=== PATIENT | male | born 1955 | race Caucasian/White ===

== ENCOUNTER 2018-10-04 00:54 | Inpatient (IN) ==
[2018-10-04] MEDS ORDERED: Naloxone 0.4 MG/ML INJ IVP PRN ×2 (01:51→19:09)
--- NOTE | 2018-10-04 05:37 | Internal Med History&Physical ---
Date of Encounter: 10/04/18 Time of Encounter: 05:05 Internal Medicine - H&P: HPI Chief complaint: Left finger infection Admitted From: Hospital to Hospital Transfer Plans for Post Hospital Care: Home History of present illness: Mr. Castrejon is a 63 year old male Patient presented to the [place] emergency room with injury to his left index finger. 5 days ago patient was out mowing his lawn, when he mowed underneath a tree. He reached out to grab a branch folded over his head and his finger became caught on the branch. He ended up with a small wound on the lateral palmar aspect of his finger. Over the next couple of days he has noted some discharge, swelling and pain that has increased since the initial injury. He has had associated nausea as well but no vomiting. He has felt feverish but he is unsure of an actual measured temperature. He also states that he has poison oak on his upper extremities as well with healing blisters. At the [place] emergency room patient's vital signs were within normal limits, patient was mildly tachycardic with a pulse of 108 CBC: Notable for White count 18.9, hemoglobin 11.9, platelets 293 BMP: Notable for Sodium 128, potassium 3.6, glucose 117. Lactic acid: 0.6 Urinalysis negative for infection Left hand x-ray showed large amount of soft tissue swelling surrounding the left second digit but no acute bony abnormality. In the emergency room a small incision was made and copious amounts of pus was expressed. Wound, blood and urine cultures were obtained. Patient was started on IV vancomycin and transferred to [facility] for further m anagement. He received 500 mL bolus of IV fluids and started on 125 mL per hour maintenance fluid. Upon my evaluation, patient is resting comfortably in the hospital bed in no acute distress. He denies chest pain, abdominal pain, nausea, vomiting, diarrhea, constipation he denies previous injuries, and does not take medications. He is a pack per day smoker, drinks 1-2 beers per day. He also o ccasionally smokes marijuana. He denies significant family medical history including diabetes, heart disease and cancers. He is a full code. Past Med Surg Social Fam HX - Past Medical History Medical history: no medical history Psychiatric history: no psych history - Past Surgical History Additional surgical history: left hip surgery, left leg surgery - Social History Smoking Status: Current every day smoker Packs per day: 1 Smokeless Tobacco Status: No Alcohol use: heavy Drug use: opiates, marijuana - Family History Father Living Status: Age at : 54 Cause of : Cancer Hx Family Cancer: Yes (Colon) Internal Medicine - H&P: Meds No Known Home Drugs 10/03/18 [History] Allergy/AdvReac Type Severity Reaction Status Date / Time No Known Allergies Allergy Verified 06/30/16 13:14 All Systems PM: A 10-system review of systems was performed and is negative for pertinent findings except as documented above in the HPI. - Constitutional Vitals: Temp Pulse Resp BP Pulse Ox 98.8 F 80 15 135/72 90 10/04/18 03:54 10/04/18 03:54 10/04/18 03:54 10/04/18 03:54 10/04/18 03:54 General appearance: Present: cooperative, A&O X 3, pleasant, no acute distress, answers questions appropriately Exam: - - Head Head exam: Present: normal inspection - Eye Eye exam: Present: EOMI, normal appearance - Respiratory Respiratory exam: Present: CTAB. Absent: rales, respiratory distress, rhonchi, wheezes - Cardiovascular Cardiovascular exam: Present: RRR. Absent: diastolic murmur, systolic murmur - GI/Abdominal GI/Abdominal exam: Present: normal bowel sounds, soft. Absent: tenderness - Extremities Exam Extremities exam: Present: warm, radial pulses palpable and symmetrical. Absent: calf tenderness, pedal edema, tenderness Additional comments: Left index finger in bandage, swelling and redness of hand noted to wrist. Upper extremities have multiple wounds in various stages of healing, no erythema . - Neurological Exam Neurological exam: Present: no focal deficits, strengths equal and symetr throughout. Absent: motor sensory deficit, facial droop, speech deficit - Skin Skin exam: Present: abrasion, dry, erythema, warm - Assessment and Plan (1) Finger infection Current Visit: No Status: Acute Assessment and plan: Likely cellulitis of left index finger. Purulent discharge coming from the wound. Redness and swelling of the left hand up to the wrist. Emergency department to [place] contacted orthopedic surgery, will see the patient in the morning. Patient was started on IV antibiotics and blood cultures and wound cultures were drawn. Follow-up culture results Follow-up orthopedic surgery recommendations (2) Leukocytosis Current Visit: Yes Status: Acute Assessment and plan: Likely secondary to left index finger infection. Started on antibiotics in the ER. Follow up culture results continue antibiotics Qualifiers: Leukocytosis type: bandemia Qualified Code(s): D72.825 - Bandemia (3) Current nicotine use Current Visit: Yes Status: Acute Assessment and plan: Nicotine patch (4) Alcohol abuse Current Visit: Yes Status: Acute Assessment and plan: Patient denies previously going through alcohol withdrawal, no signs of withdrawal currently. Continue to monitor (5) DVT prophylaxis Current Visit: Yes Status: Acute - Time Spent With Patient Total time spent is greater than 50% in coordination of care (as documented) at patient's floor/unit and/or counseling patient: Greater than 35 minutes
[2018-10-04 06:11] LABS: Hematocrit 35.8 % (37.5-50.1); Hemoglobin 12.2 g/dL (12.9-16.9); Mean Corpuscular HGB Conc 34.1 g/dL (31.6-35.5); Mean Corpuscular Volume 91.1 fL (83.0-100.0); Mean Platelet Volume 9.8 fL (9.4-12.4); Platelet Count 315 K/mcL (140-400); Red Blood Count 3.93 M/mcL (4.19-5.50); Red Cell Distribution Width 13.6 % (11.5-14.5); White Blood Count 15.1 K/mcL (4.3-11.1)
[2018-10-04 06:18] LABS: INR 1.4; Prothrombin Time 16.1 Seconds (9.4-12.1)
[2018-10-04 06:21] LABS: Activated Partial Thrombo Time 32.9 Seconds (26.0-36.0)
[2018-10-04 06:30] LABS: BUN/Creatinine Ratio 18 (6-26); Blood Urea Nitrogen 7 mg/dL (8-23); Calcium 8.8 mg/dL (8.6-10.3); Carbon Dioxide 28 mEq/L (23-29); Chloride 98 mEq/L (98-107); Glucose 100 mg/dL (70-105); Osmolality,Calculated 276 (280-300); Potassium 3.5 mEq/L (3.5-5.1); Sodium 134 mEq/L (136-145); eGFR For African Americans > 60 (> 60); eGFR For Non-African Americans > 60 (> 60)
[2018-10-04] MEDS ORDERED: Nicotine 21 MG PATCH.TD24 TD SCH (09:00)
--- NOTE | 2018-10-04 09:37 | Event Note ---
Date of Encounter: 10/04/18 Time of Encounter: 15:40 Patient was seen and examined by hospitalist services earlier this morning- Orthopedics has been consulted for I/D of left second digit- No past cardiac history or hx of CVA - his cardiac risk index is zero- he is a smoker -EKG NSR- electrolytes stable - CXR ordered- Hemodynamically stable ready for surgical I/D
--- NOTE | 2018-10-04 15:17 | Anesthesia Evaluation PreOp ---
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: Denies Any Significant HX Other Medical History: Denies Any Significant HX Anesthesia History: No Prior Anesthetic Complications, Past Anesthesia (L-Hip surgery, L-leg surgery) Alcohol Use: heavy (admts 1-2 beer/day) Drug use: opiates, marijuana ("occasional") Medications and Allergies No Known Home Drugs 10/03/18 [History] Allergy/AdvReac Type Severity Reaction Status Date / Time No Known Allergies Allergy Verified 06/30/16 13:14 - Meds/Allergy Pre-op Review Medications Reviewed: Yes Allergies Reviewed: Yes Beta Blockers on Current Med List: No Anesthesia Results - Labs 10/04/18 05:47 10/04/18 05:47 Laboratory Tests 10/04/18 10/04/18 05:47 05:47 PT 16.1 H INR 1.4 APTT 32.9 Potassium 3.5 Chloride 98 Carbon Dioxide 28 BUN 7 L Est GFR (Non-Af Amer) > 60 - Imaging EKG: pending Anesthesia Exam Vital Signs Temp Pulse Resp BP Pulse Ox 10/04/18 12:23 98.5 F 86 20 134/83 95 10/04/18 07:56 99.0 F 86 20 135/83 95 10/04/18 03:54 98.8 F 80 15 135/72 90 10/04/18 01:14 98.1 F 88 17 155/73 97 Intake and Output 10/03/18 10/04/18 10/04/18 23:59 07:59 15:59 Other: # Voids 1 Weight 54.8 kg Patient Weight 10/04/18 23:59 Weight 54.8 kg - HEENT Pupil (Motor): Pupils equal, EOMI Mallampati: II Teeth: Edentulous (except for single lower front tooth), Poor dentition Oral Opening: Greater than 3 - TOLL MECHANIC LOC: Oriented TOLL MECHANIC Motor: Normal RUE, Normal LUE, Normal RLE, Normal LLE, Normal Face TOLL MECHANIC Sensory: Normal: RUE, LUE, RLE, LLE, Face - Cardiac Rhythm: Regular Murmur: None - Pulmonary Breath Sounds: bilateral Clear Respiratory Effort: Symmetrical Anesthesia Assess/Plan ASA Score: 2 (Smoker) Level of consciousness: Cooperative, Oriented, Tranquil Anesthetic Plan: General Reason for No Neuroaxial/Regional Block: Patient refusal Autologous Blood: Yes Monitoring Plan: Standard Monitors Recovery Plan: PACU Anes Supervising Prov Stmt: Pt R&B discussed, questions answered and consent obtained. Hui Fraire MD
--- NOTE | 2018-10-04 16:33 | Orthopedic Consult Note ---
Date of Encounter: 10/04/18 Time of Encounter: 13:45 Assessment and Plan (1) Finger infection Current Visit: No Status: Acute s/p I&D in [place] ER on 10/03. No packing was placed. wound cx were obtained but still pending. Xray reviewed- does show soft tissue swelling but no acute bony abnormalities. WBC has improved from 18.9 at [place] yesterday to 15.1 today There is continued swelling and drainage from the finger. Discussed case with Dr. Singh who recommends doing a left index finger incision and drainage. I reviewed the procedure with the patient as well as r/b/a and he is agreeable. All questions were answered and consent was signed and placed in chart. Will apply xeroform and dry gauze dressings until surgery. Keep hand elevated. NPO until surgery. Pain control per primary team. Continue IV abx per primary team. History of Present Illness Chief complaint: left index finger swelling HPI: Mr. Castrejon is a 63 year old male who presented to [place] ER yesterday with left index finger swelling and pain where I&D was performed and was transferred to [facility] for admission and IV abx. Patient states roughly 1 week ago he was mowing and his finger scraped on a tree branch. He felt this was a superficial abrasion formed but denies known deeper puncture wounds. Swelling and pain progressively worsened over the next several day until a blister formed on top of the finger 2 days ago. He admits that he popped this open, drained the fluid then later when washing the wound the skin sloughed off the top of finger and has continued to worsen since then. He states the hand has felt warm "fevered" up forearm but denies any actual fevers, N/V, or red streaking up arm. Pain is localized to the index finger and does not radiate. He has some tingling to the index finger. He is right hand dominant. Past Med Surg Social Fam HX - Past Medical History Medical history: no medical history Psychiatric history: no psych history - Past Surgical History Additional surgical history: left hip surgery, left leg surgery - Social History Smoking Status: Current every day smoker Packs per day: 1 Smokeless Tobacco Status: No Alcohol use: heavy (admts 1-2 beer/day) Drug use: opiates, marijuana ("occasional") - Family History Father Living Status: Age at : 54 Cause of : Cancer Hx Family Cancer: Yes (Colon) Medications and Allergies No Known Home Drugs 10/03/18 [History] Allergy/AdvReac Type Severity Reaction Status Date / Time No Known Allergies Allergy Verified 06/30/16 13:14 All Systems Reviewed: The remainder of the systems were reviewed and are negative - Constitutional Constitutional: as per HPI - Cardiovascular Cardiovascular: as per HPI - Respiratory Respiratory: as per HPI - Musculoskeletal Musculoskeletal: as per HPI Physical Exam - Constitutional Vitals: Temp Pulse Resp BP Pulse Ox 98.1 F 78 20 123/73 94 10/04/18 15:37 10/04/18 15:37 10/04/18 15:37 10/04/18 15:37 10/04/18 15:37 - Wrist & Hand left Location of pain: index finger (left index finger has significant swelling with erythema tracking over 2nd MC. Noted previous incision to dorsal side of proximal phalanx. Finger is wet appearing but no significant active drainage noted. There is skin sloughing more on dorsal side over proximal phalanx and loose skin still attached over middle phalanx. Index finger is held in flexed position and significant pain with extension of the finger. There is sigificant tenderness to palpation worse on flexor side along tendon sheath and at volar side over 2nd MC head. limited AROM of index finger. full motion of other fingers/thumb and wrist with no pain. sensation intact distally. ) Results - Labs Result Diagrams: 10/04/18 05:47 10/04/18 05:47 Labs: Abnormal lab results WBC 15.1 K/mcL (4.3-11.1) H 10/04/18 05:47 RBC 3.93 M/mcL (4.19-5.50) L 10/04/18 05:47 Hgb 12.2 g/dL (12.9-16.9) L 10/04/18 05:47 Hct 35.8 % (37.5-50.1) L 10/04/18 05:47 PT 16.1 Seconds (9.4-12.1) H 10/04/18 05:47 Sodium 134 mEq/L (136-145) L 10/04/18 05:47 BUN 7 mg/dL (8-23) L 10/04/18 05:47 0.40 mg/dL (0.70-1.30) L 10/04/18 05:47 276 (280-300) L 10/04/18 05:47 H & H 10/04/18 Range/Units 05:47 Hgb 12.2 L (12.9-16.9) g/dL Hct 35.8 L (37.5-50.1) % All other labs normal. - Diagnostic results Wrist/Hand x-ray: report reviewed, image reviewed Consult Discharge Plan - Plan Referrals: NONE,PCP [Primary Care Provider] - - Attending Attestation Case and plan of care discussed with supervising physician, Dr. Singh, who was available for all aspects of care.
[2018-10-04] MEDS ORDERED: Lidocaine -MPF 2% 2 ML VIAL ONE (16:41)
[2018-10-04] MEDS ORDERED: *HR* FentaNYL (PF) 100 MCG/2 ML VIAL ONE (16:41)
[2018-10-04] MEDS ORDERED: *HR* Midazolam HCl 2 MG/2 ML VIAL ONE (16:42)
[2018-10-04] MEDS ORDERED: *HR* Propofol 200 MG/20 ML VIAL IVP ONE (16:42)
[2018-10-04] MEDS ORDERED: *HR* Magnesium Sulfate 1 GM/2 ML VIAL ONE (16:48)
[2018-10-04] MEDS ORDERED: Ondansetron 4 MG/2 ML VIAL ONE (17:53)
--- NOTE | 2018-10-04 18:06 | Operative Note ---
Date of procedure: 10/04/18 Pre-op diagnosis: Left index finger dorsal abscess with possible FTS Post-op diagnosis: other (Left index finger dorsal abscess with suppurative flexor tenosynovitis) Procedure: Left hand and index finger incision and drainage of flexor tendon sheath, with drainage of dorsal abscess involving extensor tendon Anesthesia: PEDRO Surgeon: Roni Singh Was there an regulatory assistant present: No Estimated blood loss (cc): 10 Tourniquet Time (Minutes): 16 Specimen: Specimen sent to microbiology Condition: stable Disposition: PACU Procedure in Detail: The patient received IV antibiotics from the floor, was brought into the operating room and placed or table in supine position with the left upper extremity placed on hand table. A sign in was performed. The patient underwent general anesthesia. A tourniquet was placed on the operative arm close to the axilla. The left upper extremity was then prepped and draped in usual sterile fashion. A time was performed. The operative extremity was then elevated, pressure was applied across the radial and ulnar arteries for 3 minutes and the tourniquet was raised to a pressure of 250 mmHg. The patient had an open wound of the dorsum of the index finger over the P1 segment were a longitudinal incision was made from the ER. The skin was very erythematous and friable in this area. This extended down to the sides. The skin on the radial side at the PIP flexion crease was in better condition. A 3- 4 cm mid lateral incision was made on the radial side of the left index finger centered at the PIP joint. The subcutaneous tissue was bluntly spread, clearer looking edema fluid was encountered. The flexor tendon sheath was exposed, keeping the neurovascular bundles and the volar flap. A small rent was made partially releasing the A3 edmundo . Gross pus was seen in the flexor tendon sheath. Deep cultures were taken for aerobic and anaerobic. A pediatric feeding tube was then used to irrigate out the sheath with normal saline. The tube was decided under the A2 edmundo and injecting normal saline in a retrograde manner, getting good outflow on the proximal wound. A 2.5 cm oblique incision was made over the A1 edmundo at the base of the left index finger just proximal to the metacarpophalangeal joint flexion crease. I bluntly dissected through the subcutaneous tissue and identified the flexor tendon sheath system. More purulent fluid was encountered. The wound was irrigated with normal saline. Ragnell retractors were used to protect the neurovascular bundles on either side. The A1 edmundo was then sharply incised at itsproximald, giving exposure of the flexor tendon sheath system. The finger was flexed, and turbid fluid came out from underneath the A2 edmundo. A 14-gauge Angiocath was inserted under the A1 edmundo going into the A2 edmundo. The flexor tendon sheath was then copiously irrigated with normal saline, allowing good flow exiting distally. Likewise the flexor sheath was irrigated from the PIP incision. The DIP joint was flexed squeezing it more pus from distal. The Angiocath was then retracted this radially to washout the flexor tendon sheath. The dorsal abscess was reopened with a scalpel and the skin noted to be very friable. Extensor tendon was seen. It was also irrigated with normal saline. A hemostat was passed dorsally down over the P2 segment, and the wound irrigated with normal saline. The tourniquet was deflated. Once again copiously irrigated with bulb syringes. The edges of the distal palmar wound were closed with 5-0 nylon simple sutures. The proximal half of the mid lateral incision was also closed with 5 nylon simple sutures. The proximal half of the dorsal incision was closed with 5-0 nylon vertical mattress sutures. Iodoform packing was impacted in to the incisions. 4 pieces of the packing left in place. The base of the left index finger was infiltrated with 10 mL of 0.5% Marcaine providing a local block.Sterile dressings applied, the patient was extubated and taken to the recovery room in stable condition.
--- NOTE | 2018-10-04 19:05 | Anesthesia Evaluation Post Op ---
Date of Encounter: 10/04/18 Time of Encounter: 18:45 - Discharge PostOp Status: Transfer Patient to floor (Patient's vital signs have been reviewed. Patient is stable postoperatively and has adequately recovered from anesthesia. Patient is determined to have stable airway patency and respiratory function including respiratory rate and oxygen saturation. Patient has a stable heart rate, blood pressure and adequate hydration. Patients mental status is acceptable. Patients temperature is appropriate. Pain and nausea are adequately controlled.)
[2018-10-05 06:36] LABS: Basophils # 0.1 K/mcL (0.0-0.2); Basophils % 0.5 %; Eosinophils # 0.1 K/mcL (0.0-0.6); Eosinophils % 1.1 %; Hematocrit 35.1 % (37.5-50.1); Hemoglobin 11.6 g/dL (12.9-16.9); Immature Granulocytes % 0.7 % (0-4); Lymphocytes # 1.6 K/mcL (0.6-4.6); Mean Corpuscular Hemoglobin 30.6 pg (28.0-33.3); Mean Corpuscular Volume 92.6 fL (83.0-100.0); Mean Platelet Volume 9.7 fL (9.4-12.4); Monocytes # 1.4 K/mcL (0.0-1.3); Monocytes % 12.3 %; Neutrophils # 8.1 K/mcL (1.6-8.9); Platelet Count 351 K/mcL (140-400); Red Blood Count 3.79 M/mcL (4.19-5.50); Red Cell Distribution Width 13.9 % (11.5-14.5); Segmented Neutrophils % 71.4 %; White Blood Count 11.3 K/mcL (4.3-11.1)
[2018-10-05 06:58] LABS: BUN/Creatinine Ratio 23 (6-26); Blood Urea Nitrogen 11 mg/dL (8-23); Calcium 8.3 mg/dL (8.6-10.3); Carbon Dioxide 29 mEq/L (23-29); Chloride 99 mEq/L (98-107); Glucose 107 mg/dL (70-105); Osmolality,Calculated 278 (280-300); Potassium 4.2 mEq/L (3.5-5.1); Sodium 134 mEq/L (136-145); eGFR For African Americans > 60 (> 60); eGFR For Non-African Americans > 60 (> 60)
[2018-10-05 08:00] LABS: C-Reactive Protein 236 mg/L (Less than 10)
[2018-10-05] MEDS ORDERED: Piperacillin/Tazobactam 3.375 GM in 0.9 % Sodium Chloride Mini Bag 100 ML IVPB SCH (08:18)
[2018-10-05] MEDS: Nicotine 21 MG PATCH.TD24 TD SCH (09:19)
--- NOTE | 2018-10-05 12:41 | Orthopedics Progress Note ---
Date of Encounter: 10/05/18 Time of Encounter: 12:15 - Assessment and Plan (1) Finger infection Current Visit: No Status: Acute postop dressings removed today were were saturated on volar side of finger. Removed packing x4 from finger/palm without complication. Still had small amount watery drainage expressed with gentle palpation from open wounds. Begin soap and water cleanses 3xdaily of the index finger then apply xeroform, dry gauze and kerlix dressings. May change dressings more often if become saturated between changes. Continue to elevate hand. ROM as tolerated. Continue IV abx and pain control per primary team. Recommend staying overnight an additional day for IV abx before switching to oral. Will reevaluate tomorrow. Subjective Principal diagnosis: POD#1 s/p left IF I&D 10/04/18 Interval history: Patient doing ok today with no significant concerns other than states finger still feels very swollen and continues to throb. He states dressings have been reinforced several times since surgery yesterday due to drainage saturating dressings. He has been trying to keep hand elevated. Pain tolerable at this time and resting comfortably. Objective Vital signs: Vital Signs Temp Pulse Resp BP Pulse Ox 10/05/18 11:58 98.8 F 81 16 108/58 94 10/05/18 06:34 98.3 F 83 15 122/71 96 10/05/18 03:50 98.8 F 70 16 119/71 94 10/04/18 23:13 97.9 F 95 17 100/68 95 10/04/18 22:20 97 16 117/69 91 10/04/18 21:20 92 16 103/68 95 10/04/18 20:50 86 16 111/65 90 10/04/18 20:20 87 16 122/72 94 10/04/18 19:50 71 16 137/84 96 10/04/18 19:24 71 16 131/86 94 10/04/18 18:45 75 12 109/73 97 10/04/18 18:30 97.5 F L 75 10 114/75 100 10/04/18 18:20 74 14 101/71 95 10/04/18 18:10 79 12 104/72 10/04/18 18:00 98.2 F 79 12 103/66 95 10/04/18 15:37 98.1 F 78 20 123/73 94 Intake and Output 10/04/18 10/05/18 10/05/18 23:59 07:59 15:59 Intake Total 250 / 250 600 / 1110 510 / 1110 Output Total Balance 240 / 240 600 / 1110 510 / 1110 Intake: IV Fluids 250 / 250 Vancocin 750 MG In 0.9 % Sodium 250 / 250 Chloride 250 ML @ 250 mls/hr IVPB Q12H VIRGINIE Rx#:[id number] Oral 600 / 1110 510 / 1110 Output: Urine 0 / 0 Estimated Blood Loss Other: Meal Breakfast Percent of Meal Consumed 10% # Voids 1 # Urine Diapers 2 Incision: swollen (left index finger continues to be swollen with erythema and raw skin, packing removed from x3 sites to finger and x1 to palm. small amount serous drainage from palm incision with gentle palpation around open wound. Sutures in place. continued sloughing skin from previous blister. continued restricted motion of index finger, good motion of other fingers, senstion intact distally. ) - Labs CBC & BMP: 10/05/18 06:24 10/05/18 06:24 Labs: Abnormal lab results WBC 11.3 K/mcL (4.3-11.1) H 10/05/18 06:24 RBC 3.79 M/mcL (4.19-5.50) L 10/05/18 06:24 Hgb 11.6 g/dL (12.9-16.9) L 10/05/18 06:24 Hct 35.1 % (37.5-50.1) L 10/05/18 06:24 1.4 K/mcL (0.0-1.3) H 10/05/18 06:24 ESR 68 mm/hr (0-10) H 10/05/18 06:24 PT 16.1 Seconds (9.4-12.1) H 10/04/18 05:47 Sodium 134 mEq/L (136-145) L 10/05/18 06:24 BUN 7 mg/dL (8-23) L 10/04/18 05:47 0.47 mg/dL (0.70-1.30) L 10/05/18 06:24 Glucose 107 mg/dL (70-105) H 10/05/18 06:24 278 (280-300) L 10/05/18 06:24 Calcium 8.3 mg/dL (8.6-10.3) L 10/05/18 06:24 236 mg/L (Less than 10) H 10/05/18 06:24 - VTE Documentation of Mechanical Device: Intermittent pneumatic compression device Consult Discharge Plan - Plan Referrals: NONE,PCP [Primary Care Provider] -
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
[2018-10-05] MEDS: Thiamine (B-1) 100 MG TABLET PO SCH (15:08)
[2018-10-05] MEDS: Folic Acid 1 MG TABLET PO SCH (15:08)
[2018-10-05] MEDS: *HR* Heparin 5,000 UNIT/ML VIAL SQ SCH ×2 (15:08→20:32)
[2018-10-05] MEDS: Clindamycin 900 MG/50 ML 900 MG/50 ML IV.SOLN IVPB SCH (16:44)
[2018-10-05] MEDS: Penicillin G Potassium 4,000,000 UNIT in 0.9 % Sodium Chloride 100 ML IVPB SCH ×2 (16:45→20:29)
[2018-10-05] MEDS ORDERED: Aminoglycoside Consult 1 EACH MC ONE (18:19)
[2018-10-06] MEDS: Clindamycin 900 MG/50 ML 900 MG/50 ML IV.SOLN IVPB SCH ×2 (00:20→09:19)
[2018-10-06] MEDS: Penicillin G Potassium 4,000,000 UNIT in 0.9 % Sodium Chloride 100 ML IVPB SCH ×4 (00:20→12:22)
[2018-10-06] MEDS: *HR* Heparin 5,000 UNIT/ML VIAL SQ SCH ×2 (05:25→13:50)
[2018-10-06 06:53] LABS: Basophils # 0.1 K/mcL (0.0-0.2); Basophils % 0.7 %; Eosinophils # 0.2 K/mcL (0.0-0.6); Eosinophils % 2.1 %; Hemoglobin 11.9 g/dL (12.9-16.9); Immature Granulocytes % 1.1 % (0-4); Lymphocytes % 20.7 %; Mean Corpuscular HGB Conc 33.1 g/dL (31.6-35.5); Mean Corpuscular Hemoglobin 30.9 pg (28.0-33.3); Mean Corpuscular Volume 93.5 fL (83.0-100.0); Mean Platelet Volume 9.8 fL (9.4-12.4); Monocytes # 1.1 K/mcL (0.0-1.3); Platelet Count 326 K/mcL (140-400); Red Blood Count 3.85 M/mcL (4.19-5.50); Red Cell Distribution Width 13.9 % (11.5-14.5); Segmented Neutrophils % 63.4 %; White Blood Count 9.4 K/mcL (4.3-11.1)
[2018-10-06 07:12] LABS: BUN/Creatinine Ratio 16 (6-26); Blood Urea Nitrogen 7 mg/dL (8-23); Calcium 8.7 mg/dL (8.6-10.3); Carbon Dioxide 27 mEq/L (23-29); Chloride 101 mEq/L (98-107); Glucose 112 mg/dL (70-105); Osmolality,Calculated 281 (280-300); Phosphorous 3.7 mg/dL (2.7-4.5); Potassium 4.5 mEq/L (3.5-5.1); Sodium 136 mEq/L (136-145); eGFR For African Americans > 60 (> 60); eGFR For Non-African Americans > 60 (> 60)
[2018-10-06] MEDS: Thiamine (B-1) 100 MG TABLET PO SCH (09:18)
[2018-10-06] MEDS: Folic Acid 1 MG TABLET PO SCH (09:18)
[2018-10-06] MEDS: Nicotine 21 MG PATCH.TD24 TD SCH (09:39)
--- NOTE | 2018-10-06 11:30 | Infectious Disease Progress No ---
ID Progress Note Date of Encounter: 10/06/18 Time of Encounter: 11:28 - Subjective Subjective: Patient seen and examined. No acute events noted overnight. Patient states overall he feels well. Denies fevers, chills, or rigors. Denies chest pain, shortness of breath, or cough. Denies nausea, vomiting, diarrhea, or constipation. Denies abdominal pain or urinary complaints. Denies oral thrush or skin rashes. States left finger pain is about the same, but he wants to go home. - Objective CBC & Chem 7: 10/06/18 06:00 10/06/18 06:00 - Exam Vitals: Temp Pulse Resp BP Pulse Ox 98.0 F 79 16 98/59 98 10/06/18 10:54 10/06/18 10:54 10/06/18 10:54 10/06/18 10:54 10/06/18 10:54 Exam: Head: Atraumatic, normal inspection, normocephalic. Eye: EOMI, PERRLA, no scleral icterus noted. ENT: Mucous membranes moist. No odontogenic infection noted. Neck: Normal inspection, no meningismus. Respiratory: Clear to auscultation. No rales, respiratory distress, rhonchi, or wheezes noted. Cardiovascular: Regular rate and rhythm, S1 and S2 audible. No murmurs, rubs, or gallops. GI: Soft, nondistended, normal bowel sounds. Extremities:No joint swelling, pedal edema, or tenderness noted. Multiple superficial scab lesions noted to the bilateral upper extremities. Left hand drainage C/D/I. Neurological: Alert, oriented 3, no focal deficits. Psychiatric: normal affect, normal mood. Skin: Dry, intact, warm. Normal color. No rashes. - Assessment and Plan (1) Sepsis Status: Acute The patient had 2 sepsis criteria on admission. Likely secondary to left index finger infection. Improved. WBC normal. Tachycardia resolved. Blood cultures drawn on 10/03/18 are no growth to date 2 sets. Qualifiers: Sepsis type: Streptococcus group A Qualified Code(s): A40.0 - Sepsis due to streptococcus, group A SNOMED Code(s): 51010023 (2) Finger infection Status: Acute Location: Left hand index finger. Causative organism: GAS, GBS. Likely secondary to recent injury. X-ray of the left hand showed large amounts of soft tissue swelling. Status post bedside I&D per the ER physician. Swab culture of the wound obtained in the emergency department stated as above. Orthopedics consulted. Status post left hand I&D 10/04/[address] Singh. Intra-op cultures as above and anaerobic cultures are pending. Currently on PCN and clindamycin. SNOMED Code(s): 186087182 (3) Alcohol abuse Status: Acute Reports drinking 2-3 beers per day. CIWA protocol per the primary team. SNOMED Code(s): 34010256 (4) Current nicotine use Status: Acute NRT per the primary team. SNOMED Code(s): 352302006 - Recommendations Recommendations: Await blood cultures to finalize. Await intraoperative cultures to finalize. Wound care and activity per the orthopedics team. Continue clindamycin 900 mg IV every 8 hours. Continue penicillin G or million units IV every 4 hours. Continue probiotics twice a day. Duration of treatment depends on the clinical picture. Monitor renal function and dose adjust antibiotics. - VTE Documentation of Mechanical Device: Intermittent pneumatic compression device Consult Discharge Plan - Plan Referrals: NONE,PCP [Primary Care Provider] - - Attending Attestation I have personally performed a face to face evaluation on this patient. I have reviewed and agree with the care plan. History and Exam by me shows: Assessment and plan: 1.Sepsis secondary to finger infection 2.Left hand index finger infection cause organism group A streptococcus status post I&D by Dr. Au on 09/24/2018 3.Alcohol abuse 4.Current nicotine use 5.Recurrent fall Recommendations: Await blood cultures to finalize. Await intraoperative cultures to finalize. Wound care and activity per the orthopedics team. Continue clindamycin 900 mg IV every 8 hours. Continue penicillin G or million units IV every 4 hours. Continue probiotics twice a day. Duration of treatment depends on the clinical picture. Monitor renal function and dose adjust antibiotics.
[2018-10-06] MEDS ORDERED: Lactobacillus 1 EACH CAP.SPRINK PO SCH (11:45)
--- NOTE | 2018-10-06 11:50 | Electrocardiograph Report ---
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
--- NOTE | 2018-10-06 13:06 | Internal Med Progress Note ---
Hospitalist Progress Note - Encounter Date of Encounter: 10/06/18 Time of Encounter: 13:03 - Subjective Interval History: Patient seen and examined earlier today. Resting in bed, states pain is adequately controlled with current pain meds. Denies any chest pain,sob, fever, or chills. He is eager to go home. Pt informed that discharge is pending culture report. Ten point ROS is negative except as listed above - Exam Vitals: Temp Pulse Resp BP Pulse Ox 98.0 F 79 16 98/59 98 10/06/18 10:54 10/06/18 10:54 10/06/18 10:54 10/06/18 10:54 10/06/18 10:54 Exam: General: No acute distress, AAO x 3 HEENT: EOMI, NC/AT, no scleral icterus Respiratory: Clear to auscultate bilaterally, no wheezing, no rales Cardiovascular: Regular, Rate, Rhythm, No murmurs GI: Soft, Non tender, non distended, normal bowel sounds Ext: No edema, no tenderness, positive pulses, left hand dressing intact Neuro: AAO x 3, no focal deficits Rest of the clinical exam is noncontributory - Assessment and Plan (1) Finger infection Current Visit: No Status: Acute (2) Leukocytosis Current Visit: Yes Status: Acute (3) Current nicotine use Current Visit: Yes Status: Acute (4) Alcohol abuse Current Visit: Yes Status: Acute (5) DVT prophylaxis Current Visit: Yes Status: Acute - Summary of Assessment and Plan Summary of Assessment and Plan: Patient is a 63y/o male with hx of alcohol and tobacco abuse who is admitted for infected finger wound. Assessment/Plan: 1. Left hand cellulitis orthopedic surgery evaluation appreciated. s/p I&D on 10/04/18 wound culture reporting: step pyogenes and strep agalactiae abx as per ID ID input appreciated continue wound care as per orthopedic surgery pain control as needed 2. Alcohol abuse Will closely monitor for signs of alcohol withdrawal Pt does not want to stop drinking and does not think his daily drinking is a problem. Folate and thiamine supplementation will initiate CIWA protocol if needed Currently clinically asymptomatic 3. Tobacco Abuse smoking cessation counseling provided patient does not want to stop smoking. nicotine supplementation provided. 4. DVT ppx: Heparin SQ Care plan discussed with patient/RN/case management - Time Spent with Patient Total time spent is greater than 50% in coordination of care (as documented) at patient's floor/unit and/or counseling patient: Internal Medicine: Result - Labs CBC & Chem 7: 10/06/18 06:00 10/06/18 06:00 Labs: Short CBC 10/06/18 Range/Units 06:00 WBC 9.4 (4.3-11.1) K/mcL Hgb 11.9 L (12.9-16.9) g/dL Hct 36.0 L (37.5-50.1) % Plt Count 326 (140-400) K/mcL Neutrophils # 6.0 (1.6-8.9) K/mcL BMP 10/06/18 06:00 Sodium 136 Potassium 4.5 Chloride 101 Carbon Dioxide 27 BUN 7 L Creatinine 0.43 L Glucose 112 H Calcium 8.7 - ABG Interpretation ABG results: PT/INR, D-dimer PT 16.1 Seconds (9.4-12.1) H 10/04/18 05:47 - VTE Documentation of Mechanical Device: Intermittent pneumatic compression device Consult Discharge Plan - Plan Referrals: NONE,PCP [Primary Care Provider] - (2) Leukocytosis Qualifiers: Leukocytosis type: bandemia Qualified Code(s): D72.825 - Bandemia
--- NOTE | 2018-10-06 15:06 | Orthopedics Progress Note ---
Date of Encounter: 10/06/18 Time of Encounter: 12:15 - Assessment and Plan (1) Finger infection Current Visit: No Status: Acute There has not been significant improvement to swelling and erythema to finger. Continued drainage noted on dressings and from the radial sided open wound on finger. Discussed case with Dr. Singh and recommend an additional day of IV abx. Intraoperative wound cx: strep pyogenese Group A and strep agalactiae group B Continue IV abx and pain control per primary team. Appreciate ID recommendations. Recommend staying overnight an additional day for IV abx. Continue soap and water cleanses 3xdaily of the index finger then apply xeroform, dry gauze and kerlix dressings. May change dressings more often if become saturated between changes. Continue to elevate hand. ROM as tolerated. Will reevaluate tomorrow. Subjective Principal diagnosis: POD#2 s/p left IF I&D 10/04/18 Interval history: Patient states he is feeling well today with no new concerns. States finger still feels tight and throbs but more tolerable today. Objective Vital signs: Vital Signs Temp Pulse Resp BP Pulse Ox 10/06/18 10:54 98.0 F 79 16 98/59 98 10/06/18 07:13 98.5 F 76 17 126/65 94 10/05/18 22:55 97.9 F 73 17 123/77 93 10/05/18 18:26 98.4 F 94 16 118/78 94 10/05/18 15:16 98.5 F 80 18 124/64 95 Intake and Output 10/05/18 10/06/18 10/06/18 23:59 07:59 15:59 Intake Total 450 / 1710 250 / 740 490 / 740 Balance 450 / 1710 250 / 740 490 / 740 Intake: IV Fluids 250 / 250 250 / 500 250 / 500 Cleocin Premix 900 MG/50 ML 900 50 / 50 50 / 100 50 / 100 mg In 50 ml @ 50 mls/hr IVPB Q8HR [facility] Rx#:[id number] Pfizerpen 4,000,000 Unit In 0.9 200 / 200 200 / 400 200 / 400 % Sodium Chloride 100 ML @ 100 mls/hr IVPB Q4HR [place] Rx#: [id number] Oral 200 / 1460 240 / 240 Other: Meal Breakfast Percent of Meal Consumed 50% # Voids 1 1 Incision: swollen (left index finger still swollen with erythema still down to 2nd MC and wet appearing. There is no black or discolorations noted to skin at this time. extensor tendon noted exposed over proximal phalanx, continued limited ROM of index finger. minimal tenderness noted along the flexor side of finger and only mild pain with PROM of finger. compartment soft over proximal and middle phalanx, sloughing skin still tight at DIPJ. sensation intact distally.) - Labs CBC & BMP: 10/06/18 06:00 10/06/18 06:00 Labs: Abnormal lab results WBC 11.3 K/mcL (4.3-11.1) H 10/05/18 06:24 RBC 3.85 M/mcL (4.19-5.50) L 10/06/18 06:00 Hgb 11.9 g/dL (12.9-16.9) L 10/06/18 06:00 Hct 36.0 % (37.5-50.1) L 10/06/18 06:00 1.4 K/mcL (0.0-1.3) H 10/05/18 06:24 ESR 68 mm/hr (0-10) H 10/05/18 06:24 PT 16.1 Seconds (9.4-12.1) H 10/04/18 05:47 Sodium 134 mEq/L (136-145) L 10/05/18 06:24 BUN 7 mg/dL (8-23) L 10/06/18 06:00 0.43 mg/dL (0.70-1.30) L 10/06/18 06:00 Glucose 112 mg/dL (70-105) H 10/06/18 06:00 278 (280-300) L 10/05/18 06:24 Calcium 8.3 mg/dL (8.6-10.3) L 10/05/18 06:24 236 mg/L (Less than 10) H 10/05/18 06:24 - VTE Documentation of Mechanical Device: Intermittent pneumatic compression device Consult Discharge Plan - Plan Referrals: NONE,PCP [Primary Care Provider] -
[2018-10-06 16:24] VITALS: BP 107/56
== END 2018-10-06 18:20 | disposition home or self-care (01) | DRG 872 ==
LOC: 3NENU → SUATTDRO 00:54
PROVIDERS: ADMIT Family Medicine; ATTEND Internal Medicine